=== PATIENT | female | born 1945 | race Caucasian/White ===

== ENCOUNTER 2018-06-08 13:17 | Emergency (ER) | payer MEDICARE, OTHER ==
[~2018-06-08] VITALS: Ht 172.7 cm; Wt 90.7 kg
[2018-06-08] MEDS ORDERED: OXYCONTIN20 M1 PO (13:33)
[2018-06-08] MEDS ORDERED: PERCOCET 10-321 EACH PO (13:33)
[2018-06-08] MEDS ORDERED: ATIVAN1 MG PO (13:33)
[2018-06-08] MEDS ORDERED: REGLAN 10 MG TA10 MG PO (13:34)
[2018-06-08] MEDS ORDERED: AMBIEN 5 MG TABL5 M1 PO (13:34)
[2018-06-08] MEDS ORDERED: EFFEXOR XR75 MG (13:34)
[2018-06-08] MEDS ORDERED: LEVOXYL175 MCG PO (13:35)
[2018-06-08] MEDS ORDERED: ZOCOR20 MG PO (13:36)
[2018-06-08] MEDS ORDERED: BENTYL 20 MG TA20 M1 PO (13:36)
[2018-06-08] MEDS ORDERED: SORINE 80 MG TA80 M1 PO (13:36)
[2018-06-08] MEDS ORDERED: METFORMIN HCL500 MG PO (13:36)
[2018-06-08] MEDS ORDERED: XARELTO20 MG PO (13:37)
[2018-06-08] MEDS ORDERED: LASIX 20 MG TAB20 MG PO (13:37)
[2018-06-08] MEDS ORDERED: ZANTAC 150MG T150 MG PO (13:37)
[2018-06-08 13:46] LABS: ABSOLUTE BASOPHILS 0.1 thou/uL (0.0-0.2); ABSOLUTE EOSINOPHILS 0.2 thou/uL (0.0-0.7); ABSOLUTE LYMPHOCYTES 3.5 thou/uL (0.8-5.3); ABSOLUTE MONOCYTES 0.9 thou/uL (0.0-1.2); ABSOLUTE NEUTROPHILS 4.9 thou/uL (1.6-8.1); BASOPHILS 1.1 %; EOSINOPHILS 1.7 %; HEMATOCRIT 40.6 % (37.0-47.0); HEMOGLOBIN 13.7 gm/dL (12.0-15.0); LYMPHOCYTES 36.4 %; MCH 27.8 pg (26.0-34.0); MCHC 33.7 g/dL (28.0-37.0); MCV 82.5 fL (80.0-100.0); MONOCYTES 9.9 %; MPV 7.3 fl. (7.2-11.1); NUCLEATED RBCS 0 /100WBC; PLATELET COUNT* 329 thou/uL (150-400); POLYS 50.9 %; RBC 4.92 mil/uL (4.20-5.00); WBC 9.6 thou/uL (4.0-11.0)
[2018-06-08 13:53] LABS: INR 1.2; PROTIME 11.8 Seconds (9.20-11.50)
[2018-06-08 13:56] LABS: ANION GAP 5 mmol/L (7-16); BUN 14 mg/dL (7-18); CALCIUM 8.5 mg/dL (8.5-10.1); CHLORIDE 96 mmol/L (98-107); CO2 28 mmol/L (21-32); CREATININE 0.7 mg/dL (0.6-1.3); GLUCOSE 93 mg/dL (70-99); SODIUM 129 mmol/L (136-145)
[2018-06-08 14:02] LABS: ALBUMIN 3.9 g/dL (3.4-5.0); ALKALINE PHOSPHATASE 96 U/L (46-116); SGOT 18 U/L (15-37); SGPT 21 U/L (30-65); TOTAL PROTEIN 7.1 g/dL (6.4-8.2); TROPONIN-I LEVEL <0.06 ng/mL (<0.06)
[2018-06-08 14:19] LABS: URINE BILIRUBIN NEGATIVE (Negative); URINE BLOOD TRACE (Negative); URINE CLARITY CLEAR; URINE COLOR YELLOW; URINE GLUCOSE-RANDOM NEGATIVE (Negative); URINE KETONES NEGATIVE (Negative); URINE LEUKOCYTES-REFLEX NEGATIVE (Negative); URINE NITRITE-REFLEX NEGATIVE (Negative); URINE PROTEIN NEGATIVE (Negative); URINE SPECIFIC GRAVITY <= 1.005 (1.005-1.030); URINE UROBILINOGEN 0.2 E.U./dl (0.2-1.0)
[2018-06-08 14:25] LABS: BACTERIA-REFLEX 1-9 Few /HPF (None Seen); CASTS None Seen /LPF (None Seen); CRYSTALS None Seen /LPF (None Seen); SQUAMOUS NONE SEEN /LPF (0-3); URINE RBC 0-2 Rare /HPF (0-2); URINE WBC-REFLEX None Seen /HPF (0-5)
[2018-06-08 14:52] LABS: TOTAL BILIRUBIN < 0.1 mg/dL (<0.1-1.0)
[2018-06-08 15:15] VITALS: BP 118/69
--- NOTE | 2018-06-09 11:55 | EKG ---
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: Oskar JIMENEZ : 1945 Requested By: Maged Rubio Order Number: [id number] MD: Ronn Dumont Measurements Intervals [place] Rate: 60 P: 85 KS: 181 QRS: 12 QRSD: 103 T: 42 QT: 425 QTc: 425 Interpretive Statements Sinus rhythm Low voltage, precordial leads Borderline T abnormalities, anterior leads No previous ECG available for comparison Electronically Signed On 06-09-2018 11:55:06 CDT by Ronn Dumont [email or web address] <ELECTRONICALLY SIGNED> By: Ronn Dumont MD, [facility] 06/09/18 1155 1439 1439 Ronn Dumont MD, [facility] /EPI
== END 2018-06-08 15:17 | disposition home or self-care (01) ==
LOC: M.ERS 13:17
PROVIDERS: Family Medicine
DX: M25.551 Pain in right hip (principal); Z90.710 Acquired absence of both cervix and uterus; Z88.8 Allergy status to other drugs, medicaments and biological substances; W18.39XA Other fall on same level, initial encounter; Y93.89 Activity, other specified; Y92.89 Other specified places as the place of occurrence of the external cause; Y99.8 Other external cause status

== ENCOUNTER 2019-10-11 16:50 | Emergency (ER) | payer MEDICARE, OTHER ==
[~2019-10-11] VITALS: Ht 172.7 cm; Wt 95.3 kg
[~2019-10-11 16:50] MED LIST: AMBIEN 5 MG TABL5 M1 PO; ATIVAN1 MG PO; BENTYL 20 MG TA20 M1 PO; EFFEXOR XR75 MG; LASIX 20 MG TAB20 MG PO; LEVOXYL175 MCG PO; METFORMIN HCL500 MG PO; OXYCONTIN20 M1 PO; PERCOCET 10-321 EACH PO; REGLAN 10 MG TA10 MG PO; SORINE 80 MG TA80 M1 PO; XARELTO20 MG PO; ZANTAC 150MG T150 MG PO; ZOCOR20 MG PO
[2019-10-11 17:35] LABS: ABSOLUTE BASOPHILS 0.1 thou/uL (0.0-0.2); ABSOLUTE EOSINOPHILS 0.2 thou/uL (0.0-0.7); ABSOLUTE LYMPHOCYTES 3.3 thou/uL (0.8-5.3); ABSOLUTE NEUTROPHILS 5.1 thou/uL (1.6-8.1); BASOPHILS 1.5 %; EOSINOPHILS 1.6 %; HEMATOCRIT 32.7 % (37.0-47.0); HEMOGLOBIN 10.9 gm/dL (12.0-15.0); LYMPHOCYTES 33.6 %; MCH 24.9 pg (26.0-34.0); MCHC 33.3 g/dL (28.0-37.0); MONOCYTES 10.5 %; MPV 6.6 fl. (7.2-11.1); NUCLEATED RBCS 0 /100WBC; PLATELET COUNT* 414 thou/uL (150-400); POLYS 52.8 %; RBC 4.36 mil/uL (4.20-5.00); RDW-CV 17.5 % (10.5-14.5); WBC 9.7 thou/uL (4.0-11.0)
[2019-10-11 17:42] LABS: ANION GAP 12 mmol/L (7-16); BUN 15 mg/dL (7-18); CALCIUM 9.2 mg/dL (8.5-10.1); CHLORIDE 94 mmol/L (98-107); CO2 26 mmol/L (21-32); CREATININE 0.8 mg/dL (0.6-1.3); GLUCOSE 111 mg/dL (70-99); INR 1.1; POTASSIUM 4.2 mmol/L (3.5-5.1); PROTIME 11.5 Seconds (9.20-11.50); SODIUM 132 mmol/L (136-145)
[2019-10-11 17:50] LABS: ALBUMIN 3.6 g/dL (3.4-5.0); ALKALINE PHOSPHATASE 92 U/L (46-116); SGOT 10 U/L (15-37); SGPT 17 U/L (30-65); TOTAL BILIRUBIN < 0.1 mg/dL (<0.1-1.0); TOTAL PROTEIN 7.1 g/dL (6.4-8.2)
[2019-10-11] MEDS ORDERED: BUTALB-APAP-CA1 EACH PO (18:55)
[2019-10-11] MEDS ORDERED: OXYCODONE HCL 55 MG PO (18:55)
[2019-10-11 19:31] VITALS: BP 138/69
== END 2019-10-11 19:44 | disposition home or self-care (01) ==
LOC: M.ERS 16:50
PROVIDERS: Personal Emergency Response Attendant
DX: G43.909 Migraine, unspecified, not intractable, without status migrainosus (principal); Z90.89 Acquired absence of other organs; Z90.710 Acquired absence of both cervix and uterus; Z88.8 Allergy status to other drugs, medicaments and biological substances

== ENCOUNTER 2020-06-10 14:24 | Emergency (ER) | payer MEDICARE, OTHER ==
[~2020-06-10] VITALS: Ht 165.1 cm; Wt 81.7 kg
[~2020-06-10 14:24] MED LIST changes: +BUTALB-APAP-CA1 EACH PO; +OXYCODONE HCL 55 MG PO
[2020-06-10] MEDS ORDERED: ALBUTEROL2.5 MG/31 INH (14:30)
[2020-06-10] MEDS ORDERED: FAMOTIDINE 20 M20 MG PO (14:31)
[2020-06-10] MEDS ORDERED: DIPHENHYDRAMINE25 M1 PO (14:31)
[2020-06-10] MEDS ORDERED: LIDODERM1 EACH TOP (14:32)
[2020-06-10] MEDS ORDERED: TAMSULOSIN HCL0.4 MG PO (14:33)
[2020-06-10 16:26] LABS: ABSOLUTE BASOPHILS 0.1 thou/uL (0.0-0.2); ABSOLUTE EOSINOPHILS 0.1 thou/uL (0.0-0.7); ABSOLUTE LYMPHOCYTES 2.5 thou/uL (0.8-5.3); ABSOLUTE MONOCYTES 0.8 thou/uL (0.0-1.2); ABSOLUTE NEUTROPHILS 6.7 thou/uL (1.6-8.1); EOSINOPHILS 1.3 %; HEMATOCRIT 35.7 % (37.0-47.0); HEMOGLOBIN 11.6 gm/dL (12.0-15.0); LYMPHOCYTES 24.2 %; MCH 26.3 pg (26.0-34.0); MCHC 32.5 g/dL (28.0-37.0); MCV 81.1 fL (80.0-100.0); MONOCYTES 7.8 %; MPV 6.5 fl. (7.2-11.1); NUCLEATED RBCS 0 /100WBC; PLATELET COUNT* 442 thou/uL (150-400); POLYS 65.7 %; RDW-CV 16.8 % (10.5-14.5); WBC 10.2 thou/uL (4.0-11.0)
[2020-06-10 16:41] LABS: CALCIUM 9.3 mg/dL (8.5-10.1)
[2020-06-10 16:46] LABS: TOTAL BILIRUBIN 0.1 mg/dL (<0.1-1.0); TOTAL PROTEIN 7.5 g/dL (6.4-8.2)
[2020-06-10 17:45] VITALS: BP 134/82
== END 2020-06-10 17:45 | disposition home or self-care (01) ==
LOC: M.ERS 14:24
PROVIDERS: Personal Emergency Response Attendant
DX: G43.909 Migraine, unspecified, not intractable, without status migrainosus (principal); Z88.8 Allergy status to other drugs, medicaments and biological substances; Z90.89 Acquired absence of other organs

== ENCOUNTER 2021-06-04 12:15 | Inpatient (IN) | payer MEDICARE, OTHER ==
[~2021-06-04] VITALS: Ht 170.2 cm; Wt 98.9 kg
[~2021-06-04 12:15] MED LIST changes: +ALBUTEROL2.5 MG/31 INH; +DIPHENHYDRAMINE25 M1 PO; +FAMOTIDINE 20 M20 MG PO; +LIDODERM1 EACH TOP; +TAMSULOSIN HCL0.4 MG PO
[2021-06-04 12:20] VITALS: BP 147/90
[2021-06-04] MEDS ORDERED: BENTYL 10 MG CA10 M1 PO (12:22)
[2021-06-04] MEDS ORDERED: BENADRYL25 MG PO (12:22)
[2021-06-04] MEDS ORDERED: NORVASC5 MG PO (12:22)
[2021-06-04] MEDS ORDERED: BUTALB-ACETAMI1 EAC2 PO (12:22)
[2021-06-04] MEDS ORDERED: PROTONIX40 M2 PO (12:23)
[2021-06-04] MEDS ORDERED: ACID CONTROLLER20 MG PO (12:23)
[2021-06-04] MEDS ORDERED: XARELTO20 MG PO (12:23)
[2021-06-04] MEDS ORDERED: LASIX 20 MG TAB20 MG PO (12:23)
[2021-06-04] MEDS ORDERED: METFORMIN HCL500 M2 PO (12:23)
[2021-06-04] MEDS ORDERED: REGLAN10 MG PO (12:23)
[2021-06-04] MEDS ORDERED: LEVO-T75 MCG PO (12:23)
[2021-06-04] MEDS ORDERED: ZOCOR20 MG PO (12:24)
[2021-06-04] MEDS ORDERED: SORINE 80 MG TA80 MG PO (12:24)
[2021-06-04] MEDS ORDERED: FLOMAX0.4 MG PO (12:24)
[2021-06-04] MEDS ORDERED: KLOR-CON M2020 MEQ PO (12:24)
[2021-06-04 13:19] LABS: HEMATOCRIT 38.9 % (37.0-47.0); HEMOGLOBIN 12.5 gm/dL (12.0-15.0); MCH 26.5 pg (26.0-34.0); MCHC 32.2 g/dL (28.0-37.0); MCV 82.4 fL (80.0-100.0); MPV 6.6 fl. (7.2-11.1); NUCLEATED RBCS 0 /100WBC; PLATELET COUNT* 334 thou/uL (150-400); RBC 4.72 mil/uL (4.20-5.00); RDW-CV 20.9 % (10.5-14.5); WBC 8.7 thou/uL (4.0-11.0)
[2021-06-04 13:25] LABS: CALCIUM 8.9 mg/dL (8.5-10.1); CREATININE 0.8 mg/dL (0.6-1.3); POTASSIUM 3.5 mmol/L (3.5-5.1)
[2021-06-04 13:30] LABS: ALBUMIN 4.1 g/dL (3.4-5.0); TOTAL BILIRUBIN 0.2 mg/dL (<0.1-1.0); TOTAL PROTEIN 7.9 g/dL (6.4-8.2)
[2021-06-04 14:08] LABS: URINE BILIRUBIN NEGATIVE (Negative); URINE BLOOD NEGATIVE (Negative); URINE COLOR YELLOW; URINE GLUCOSE-RANDOM NEGATIVE (Negative); URINE KETONES NEGATIVE (Negative); URINE LEUKOCYTES-REFLEX NEGATIVE (Negative); URINE NITRITE-REFLEX NEGATIVE (Negative); URINE PROTEIN TRACE (Negative); URINE SPECIFIC GRAVITY 1.015 (1.005-1.030); URINE UROBILINOGEN 0.2 E.U./dl (0.2-1.0)
[2021-06-04 14:09] LABS: URINE CLARITY CLEAR
[2021-06-04 14:11] LABS: ABSOLUTE LYMPHOCYTES 1.7 thou/uL (0.8-5.3); ABSOLUTE MONOCYTES 0.4 thou/uL (0.0-1.2); ABSOLUTE NEUTROPHILS 6.5 thou/uL (1.6-8.1)
[2021-06-04 14:13] LABS: PLATELET ESTIMATE ADEQUATE
--- NOTE | 2021-06-04 14:51 | EKG ---
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 : 1945 Requested By: Carissa Coburn Order Number: [id number] MD: Lorenzo Chapa Measurements Intervals [place] Rate: 102 P: 55 MN: 215 QRS: 19 QRSD: 85 T: 15 QT: 364 QTc: 475 Interpretive Statements Sinus tachycardia Prolonged MN interval Low voltage, precordial leads 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
[2021-06-04 20:14] VITALS: BP 131/65
[2021-06-05 00:01] VITALS: BP 124/69
[2021-06-05 04:00] VITALS: BP 143/82
--- NOTE | 2021-06-05 05:46 | NUR ---
PT ARRIVED TO THE UNIT AT 2014. A&O X 2-3, CONFUSED AT TIMES, AGITATED. ON 2L, HR TACHY. PT PULLED HER IV OUT. NEW IV INSERTED. PT FORGETFUL REALLY BAD AND CALLS EVERY 3 MINS. INCONTINENT, PUREWICK IN PLACE. SNACKS GIVEN PER PT REQUEST THEN C/O NAUSEA, ZOFRAN GIVEN. TYLENOL GIVEN FOR HEADACHE THIS MORNING. CALL LIGHT WITHIN REACH. BED ALRM ON FOR SAFETY. WILL CONTINUE TO MONITOR.
[2021-06-05 09:00] VITALS: BP 169/81
[2021-06-05 11:46] LABS: ABSOLUTE BASOPHILS 0.1 thou/uL (0.0-0.2); ABSOLUTE LYMPHOCYTES 1.3 thou/uL (0.8-5.3); ABSOLUTE NEUTROPHILS 7.8 thou/uL (1.6-8.1); BASOPHILS 0.9 %; EOSINOPHILS 0.3 %; HEMATOCRIT 35.6 % (37.0-47.0); HEMOGLOBIN 11.6 gm/dL (12.0-15.0); LYMPHOCYTES 12.4 %; MCH 26.6 pg (26.0-34.0); MCHC 32.5 g/dL (28.0-37.0); MCV 81.8 fL (80.0-100.0); MONOCYTES 9.9 %; MPV 6.3 fl. (7.2-11.1); NUCLEATED RBCS 0 /100WBC; PLATELET COUNT* 523 thou/uL (150-400); POLYS 76.5 %; RBC 4.35 mil/uL (4.20-5.00); RDW-CV 20.2 % (10.5-14.5); WBC 10.2 thou/uL (4.0-11.0)
[2021-06-05 12:00] LABS: ALBUMIN 3.7 g/dL (3.4-5.0); CALCIUM 8.6 mg/dL (8.5-10.1); CREATININE 0.8 mg/dL (0.6-1.3); POTASSIUM 3.1 mmol/L (3.5-5.1); TOTAL BILIRUBIN 0.2 mg/dL (<0.1-1.0); TOTAL PROTEIN 7.1 g/dL (6.4-8.2)
[2021-06-05 17:36] VITALS: BP 181/72
[2021-06-05 20:00] VITALS: BP 144/72
--- NOTE | 2021-06-06 04:07 | NUR ---
PT A&O X 2, FORGETFUL AND ANXIOUS. ST ON THE MONITOR. PT JUST SCREAMS OUT WHILE AWAKE. PRN MEDS GIVEN. NO C/O ABD PAIN. INCONTINENT OF BOWEL AND BLADDER. CALL LIGHT WITHIN REACH. WILL CONTINUE TO MONITOR.
[2021-06-06 04:45] VITALS: BP 161/78
[2021-06-06 07:55] LABS: MCH 26.3 pg (26.0-34.0); MPV 6.2 fl. (7.2-11.1); NUCLEATED RBCS 0 /100WBC
[2021-06-06 07:58] LABS: ABSOLUTE BASOPHILS 0.1 thou/uL (0.0-0.2); ABSOLUTE EOSINOPHILS 0.1 thou/uL (0.0-0.7); ABSOLUTE LYMPHOCYTES 2.1 thou/uL (0.8-5.3); ABSOLUTE MONOCYTES 0.7 thou/uL (0.0-1.2); ABSOLUTE NEUTROPHILS 5.2 thou/uL (1.6-8.1); BASOPHILS 1.5 %; EOSINOPHILS 0.8 %; HEMATOCRIT 34.7 % (37.0-47.0); HEMOGLOBIN 11.3 gm/dL (12.0-15.0); LYMPHOCYTES 25.4 %; MCHC 32.5 g/dL (28.0-37.0); MCV 80.9 fL (80.0-100.0); MONOCYTES 8.8 %; PLATELET COUNT* 496 thou/uL (150-400); POLYS 63.5 %; RBC 4.28 mil/uL (4.20-5.00); RDW-CV 20.4 % (10.5-14.5); WBC 8.2 thou/uL (4.0-11.0)
[2021-06-06 08:00] VITALS: BP 148/81
[2021-06-06 08:35] LABS: ALBUMIN 3.7 g/dL (3.4-5.0); CALCIUM 9.1 mg/dL (8.5-10.1); CREATININE 0.8 mg/dL (0.6-1.3); POTASSIUM 3.4 mmol/L (3.5-5.1); TOTAL BILIRUBIN 0.2 mg/dL (<0.1-1.0); TOTAL PROTEIN 7.1 g/dL (6.4-8.2)
[2021-06-06 08:43] LABS: % SATURATION 8 % (20-39); IRON 26 ug/dL (50-175)
[2021-06-06 09:45] LABS: ESR (SEDRATE) 35 mm/hr (0-30)
--- NOTE | 2021-06-06 10:12 | NUR ---
CM ASSESSMENT: PT ALERT, BUT FORGETFUL. PT'S SPOUSE AT THE BEDSIDE AND ASSISTING WITH CM ASSESSMENT. PT RESIDES AT HOME WITH SPOUSE, SON AND GRANDSON AND PT'S SPOUSE INFORMS THAT HE ASSIST HER WITH CARES NEEDED. PT USES A WALKER FOR MOBILITY, BUT ALSO OWNS A CANE. PT HAS HOME OXYGEN PROVIDED BY [facility], BUT INFORMS THAT SHE HAS NOT USED IT IN A WHILE. PT HAS PAST HX OF HH AND SNF, BUT COULD NOT RECALL THE NAMES. CM D/C PLANNING NEEDS ARE TBD AT THIS TIME. CM WILL REMAIN AVAILABLE TO ASSIST AND FOLLOW NEEDED.
--- NOTE | 2021-06-06 11:17 | NUR ---
The patient is alert. ST on the monitor. Call light within reach. Denies CP or SOB. Incontient of bladder. Her is a the bedside. The patient states "They have bed bugs." The confirmed he seen a some a couple days ago. The house was treated 6 months ago.
[2021-06-06 12:34] VITALS: BP 147/87
--- NOTE | 2021-06-06 16:47 | NUR ---
GI following. Plan [facility] at me
[2021-06-06 18:21] VITALS: BP 143/76
[2021-06-07 04:00] VITALS: BP 169/87
[2021-06-07] MEDS ORDERED: IRON325 PO (09:45)
[2021-06-07] MEDS ORDERED: BENTYL 10 MG CA10 MG PO (10:08)
[2021-06-07 10:15] VITALS: BP 169/87
--- NOTE | 2021-06-07 10:54 | NUR ---
The patient is alert. Able to make most needs known. pain management given. Incontient care given. ST on the monitor. Call light within reach. Continous yelling out.
--- NOTE | 2021-06-07 11:16 | NUR ---
Discharge instrcutions given to the patient and . Verbalized understanding.
--- NOTE | 2021-06-07 11:16 | NUR ---
IV access and monitor removed.
[2021-06-07 12:20] VITALS: BP 169/87
--- NOTE | 2021-06-07 13:05 | NUR ---
PLAN FOR THE PT TO D/C HOME WITH HH TODAY. BUCK SPOKE TO THE PT AND HER SPOUSE TO DISCUSS THIS AND HE INFORMS OF DESIRE TO HAVE HH ARRANGED WITH [facility]OS[facility]. CM CALLED AND FAXED PT'S CLINICAL INFO TO [facility], AND THEY ACCEPTED THE PT AND WILL CONTACT HER SPOUSE TO ARRANGE A TIME TO VISIT. [facility] PHONE: [phone] FAX: [phone]
[2021-06-07] MEDS ORDERED: AUGMENTIN 875-1 EACH PO (13:48)
== END 2021-06-07 12:40 | disposition home health service (06) | DRG 391 ==
LOC: M.ERS 12:15 → M.ORTHSURG 17:15 → M.TBA-ER 17:15 → M.ORTHSURG 20:51 → M.2W 06-06 07:10
PROVIDERS: Internal Medicine; Internal Medicine Gastroenterology; Nurse Practitioner Family; ADMIT Internal Medicine; ATTEND Internal Medicine
DX: K29.00 Acute gastritis without bleeding (principal); G93.41 Metabolic encephalopathy; E87.1 Hypo-osmolality and hyponatremia; K55.1 Chronic vascular disorders of intestine; A08.4 Viral intestinal infection, unspecified; E11.9 Type 2 diabetes mellitus without complications; F03.90 Unspecified dementia, unspecified severity, without behavioral disturbance, psychotic disturbance, mood disturbance, and anxiety; I10 Essential (primary) hypertension; F17.210 Nicotine dependence, cigarettes, uncomplicated; E86.0 Dehydration; I48.91 Unspecified atrial fibrillation; E87.6 Hypokalemia; K29.70 Gastritis, unspecified, without bleeding; Z20.822 Contact with and (suspected) exposure to COVID-19; Z90.710 Acquired absence of both cervix and uterus; Z88.8 Allergy status to other drugs, medicaments and biological substances; Z80.9 Family history of malignant neoplasm, unspecified